=== PATIENT | female | born 1960 | race Caucasian/White ===

== ENCOUNTER 2021-11-09 09:12 | Day surgery (SDC) | payer BC ==
[~2021-11-09] VITALS: Ht 167.6 cm; Wt 74.4 kg
[2021-11-09] VITALS (10 sets, daily range): BP systolic 126–173; BP diastolic 83–111; PULSE 67–94; TEMP 98.5
[2021-11-09] MEDS ORDERED: XARELTO20 MG PO (09:36)
[2021-11-09] MEDS ORDERED: TAMBOCOR 1100 MG/TAB PO (09:37)
[2021-11-09] MEDS ORDERED: TOPROL XL 25MG25 MG PO (09:37)
[2021-11-09 10:32] LABS: HEMATOCRIT 41.7 % (37.0-47.0); HEMOGLOBIN 14.5 g/dl (12.5-16.0); MEAN CELL VOLUME 103 fl (80.0-100.0); MEAN CORPUSCULAR HEMOGLOBIN 36 pg (27-31); MEAN CORPUSCULAR HGB CONC 35 g/dl (33.0-37.0); MEAN PLATELET VOLUME 10.1 fl (7.4-10.4); PLATELET COUNT 243 K/mm3 (130-400); RED BLOOD COUNT 4.04 M/mm3 (4.10-5.30); REDCELL DISTRIBUTION WIDTH-CV 13.9 % (11.5-14.5)
[2021-11-09 10:43] LABS: CALCIUM 9.3 mg/dL (8.4-10.2); CREATININE, serum 0.86 mg/dL (0.57-1.11); INR 1.1 (0.8-3.0); POTASSIUM 4.5 mmol/L (3.5-4.5); PROTHROMBIN TIME 12.6 SECONDS (9.7-12.8)
[2021-11-09 10:46] LABS: PARTIAL THROMBOPLASTIN TIME 29.9 SECONDS (26.0-37.0)
--- NOTE | 2021-11-09 11:23 | NUR ---
SEE MERGE DOCUMENTATION FOR MEDICATION ADMINISTRATION AND INTRA/POST PROCEDURE SEDATION ASSESSMENTS.
[2021-11-09 11:46] LABS: ARTERIAL BLD GAS O2 SATURATION 76.9 % (92-100); ARTERIAL BLD GAS TCO2 CT 25.1; ARTERIAL BLOOD GAS BASE EXCESS -1.4 (-2-2); ARTERIAL BLOOD GAS HCO3 23.8 meq/L (22-26); ARTERIAL BLOOD GAS PCO2 42.1 mmHg (35-45); ARTERIAL BLOOD GAS pH 7.37 (7.35-7.45)
[2021-11-09 11:46] LABS: ARTERIAL BLD GAS O2 SATURATION 78.8 % (92-100); ARTERIAL BLD GAS TCO2 CT 21.2; ARTERIAL BLOOD GAS BASE EXCESS -3.8 (-2-2); ARTERIAL BLOOD GAS HCO3 20.2 meq/L (22-26); ARTERIAL BLOOD GAS PCO2 33.7 mmHg (35-45)
[2021-11-09 11:47] LABS: ARTERIAL BLOOD GAS PO2 44.5 mmHg (80-100)
[2021-11-09 11:47] LABS: ARTERIAL BLOOD GAS PO2 43.3 mmHg (80-100)
--- NOTE | 2021-11-09 12:50 | NUR ---
Pt is back to [facility] after [facility]. Pt resting comfortably on stretcher. report from Caridad SANON. Pt continues to sat 85-86% on room, sats increase gradually with deep breathing. Pt placed on o2 at 21/2 liters, sats 93% with resp rate 10-15/min. Pt is alert and oriented. TR band in place to rt wrist. cms intact distal. Venous puncture to rt femoral vein in rt groin dressed with clean dry and intact gauze/tegaderm dressing. cms also intact distal. Pt aware of poc, including chest xray at approx 1450 after bedrest. We have discussed discharge instructions including activity restrictions and will do so repeatedly throughout pt's stay.
--- NOTE | 2021-11-09 15:39 | NUR ---
Pt has done well during her recovery. She is ambulatory in room with steady gait. Pt has been weaned off oxygen and is satting low 90's on room air, respirations eupnic. TR band has been deflated with no problem. rt radial site dressed with bandaid, folded 2x2 and coban dressing. Rt groin site remains softe, dressing is clean dry and intact. cms intact to extremities. I have reviewed dc instructions r/t cardiac cath and moderate sedation. chest xray has been obtained, and I notified Анна SANON of pt's status.
--- NOTE | 2021-11-09 16:30 | NUR ---
Pt was just escorted to exit via wheelchair. Dr. Cade did make it back in to see pt before she was discharged. Pt satting 96% on room air at time of departure. I reviewed pt's fu and rx instructions with pt who verbalized understanding. No concerns at time of departure.
== END 2021-11-09 16:32 | disposition home or self-care (01) ==
LOC: COL.CAR 09:12
PROVIDERS: Internal Medicine Cardiovascular Disease
DX: I44.7 Left bundle-branch block, unspecified (principal); I48.0 Paroxysmal atrial fibrillation; Z79.01 Long term (current) use of anticoagulants
CPT/HCPCS: C1769; C1894; J1644; J2250; J3010; Q9967

== ENCOUNTER 2021-11-24 07:55 | Inpatient (IN) | payer BC ==
[~2021-11-24] VITALS: Ht 167.6 cm; Wt 63.0 kg
[~2021-11-24 07:55] MED LIST: TAMBOCOR 1100 MG/TAB PO; TOPROL XL 25MG25 MG PO; XARELTO20 MG PO
[2021-12-18 10:13] VITALS: BP 129/97; PULSE 99; TEMP 98.3
[2021-12-18] MEDS ORDERED: MAGNESIUM PO (10:34)
--- NOTE | 2021-12-18 10:49 | NUR ---
pt placed on tele, admission completed, Butch SANON attempting iv, EKG performed, pt HR irregular, oriented to room, no other needs
[2021-12-18 10:55] VITALS: BP 145/99; PULSE 103
--- NOTE | 2021-12-18 11:00 | NUR ---
JACINTO RN NOTIFIED OF EKG NOT POPULATING TO Why Not Give Back, JACINTO ABLE TO LOOK UP EKG AND REPORT QTC AT 494. SEBASTIÁN MADE AWARE AND REPORTED IT WAS OK TO GIVE. IV STARTED 22G TO LFA.
[2021-12-18 14:48] LABS: HEMATOCRIT 39.8 % (37.0-47.0); HEMOGLOBIN 13.5 g/dl (12.5-16.0); MEAN CELL VOLUME 107 fl (80.0-100.0); MEAN CORPUSCULAR HEMOGLOBIN 36 pg (27-31); MEAN CORPUSCULAR HGB CONC 34 g/dl (33.0-37.0); MEAN PLATELET VOLUME 10.1 fl (7.4-10.4); PLATELET COUNT 159 K/mm3 (130-400); RED BLOOD COUNT 3.72 M/mm3 (4.10-5.30); REDCELL DISTRIBUTION WIDTH-CV 14.4 % (11.5-14.5)
[2021-12-18 15:05] LABS: CALCIUM 8.5 mg/dL (8.4-10.2); CREATININE, serum 0.86 mg/dL (0.57-1.11); POTASSIUM 3.9 mmol/L (3.5-4.5)
[2021-12-18 15:37] VITALS: BP 136/88; PULSE 105; TEMP 97.2
--- NOTE | 2021-12-18 17:13 | NUR ---
UNEVENTFUL SHIFT, PT DENIES PAIN, INDEPENDENT IN ROOM, TELE ON PER ORDER, NO OTHER NEEDS
[2021-12-18 19:28] VITALS: BP 139/95; PULSE 100; TEMP 98.3
--- NOTE | 2021-12-18 21:10 | NUR ---
ALERT AND OX4. DENIES SOA, CHEST PAIN OR DIZZY. EKG SHOWS QTC OF 493, SOLOTOL GIVEN PER ORDER ALONG W PM MEDS. POC DISCUSSED. CALL LIGHT WI REACH.
--- NOTE | 2021-12-18 23:58 | NUR ---
2313- PT CONVERTS FROM AFIB TO NSR. RESTING W EYES CLOSED, RESP EVEN AND UNLABORED.
[2021-12-19 00:13] VITALS: BP 128/86; PULSE 66; TEMP 97.9
[2021-12-19 03:54] VITALS: BP 128/78; PULSE 65; TEMP 97.9
--- NOTE | 2021-12-19 06:02 | NUR ---
RESTED THROUGH THE NIGHT WITHOUT INCIDENT. CALL LIGHT WI REACH.
[2021-12-19 06:20] LABS: BASO % 0.6 % (0.0-2.0); EOS # 0.1 K/mm3 (0.0-0.7); EOS % 1.5 % (0.0-4.0); GRAN # 1.9 K/mm3 (1.4-6.5); GRAN % 55.8 % (42.2-75.2); HEMATOCRIT 38.6 % (37.0-47.0); HEMOGLOBIN 13.2 g/dl (12.5-16.0); LYMPH # 0.9 K/mm3 (1.2-3.4); LYMPH % 26.3 % (20.0-51.0); MEAN CELL VOLUME 106 fl (80.0-100.0); MEAN CORPUSCULAR HEMOGLOBIN 36 pg (27-31); MEAN CORPUSCULAR HGB CONC 34 g/dl (33.0-37.0); MEAN PLATELET VOLUME 10.5 fl (7.4-10.4); MONO # 0.5 K/mm3 (0.1-0.6); MONO % 15.8 % (1.7-9.3); PLATELET COUNT 153 K/mm3 (130-400); RED BLOOD COUNT 3.65 M/mm3 (4.10-5.30); REDCELL DISTRIBUTION WIDTH-CV 14.3 % (11.5-14.5)
[2021-12-19 06:32] LABS: INR 2.2 (0.8-3.0)
[2021-12-19 06:34] LABS: CALCIUM 8.5 mg/dL (8.4-10.2); CREATININE, serum 0.77 mg/dL (0.57-1.11); MAGNESIUM 1.7 mg/dL (1.6-2.6)
--- NOTE | 2021-12-19 07:41 | NUR ---
DR. LOWERY PAGED AFTER EKG REVIEWED. DR. LOWERY RETURNED CALL AND QTC 523, CONVERSION TO SINUS AYO, AND SOTALOL 80MG DOSE REVIEWED. RECIEVED VERBAL ORDER TO CHANGE DOSE TO 40MG BID. NO OTHER NEEDS.
[2021-12-19 08:09] VITALS: BP 142/88; PULSE 63; TEMP 97.8
--- NOTE | 2021-12-19 08:15 | NUR ---
PT AOX4, PLEASANT, LAYING IN BED WATCHING TELEVISION UPON ENTRY, CALL LIGHT WITHIN REACH, ICE WATER PROVIDED, PT DENIES PAIN, ASSESSMENT PERFORMED, MEDICATIONS GIVEN, EDUCATED PT ON SOTALOL DOSE CHANGE AND PT BEING IN NSR ON EKG/TELEMETRY. UPON ASSESSMENT HR SOUNDED IRREGULAR, TELEMETRY CALLED AND REPORTED NSR W/ OCCASIONAL PAC. VITALS REVIEWED. PT REPORTED SHE WOULD BE TRYING TO GO BACK TO SLEEP. NO OTHER NEEDS AT THIS TIME.
--- NOTE | 2021-12-19 09:41 | NUR ---
SW met with the patient to discuss discharge plan. The patient lives alone in [place]. She states that her ex-, Jhony Lombardi (ph#[phone]), stays with her from time to time. She reports independence with ADLs and does not have any DME. The patient's PCP is Dr. Vale Jose and she receives her medications from [facility]. She reports no difficulties obtaining her meds. The patient does not have a DPOA-HC in EMR, but she states that she does have one completed and that she designated her ex-, Jhony. She states [facility] may have a copy of the document. The patient plans on returning home upon discharge. No additional needs at this time. *Discharge plan: home*
--- NOTE | 2021-12-19 10:50 | NUR ---
First visit from the gutter mouth cutter. No needs right now.
[2021-12-19 12:44] VITALS: BP 153/83; PULSE 57; TEMP 98.4
[2021-12-19 15:53] VITALS: BP 152/76; PULSE 58; TEMP 98.1
--- NOTE | 2021-12-19 17:30 | NUR ---
PT AOX4, DENIES PAIN DURING SHIFT, EDUCATED ON PURPOSE OF IV MAGNESIUM AND XARELTO. UNEVENTFUL SHIFT, INDEPENDENT IN ROOM, CALL LIGHT WITHIN REACH, EAGER FOR DISCHARGE IN AM, NO OTHER NEEDS
[2021-12-19 20:19] VITALS: BP 147/85; PULSE 66; TEMP 97.8
[2021-12-20 00:39] VITALS: BP 153/88; PULSE 56; TEMP 97.6
--- NOTE | 2021-12-20 02:14 | NUR ---
PT CONT TO BE ON SOTOLOL 1/2 DOSE ADJUSTED TODAY. DENIES ANY CHEST PAIN, LIGHT HEADED OR DIZZY. HEART RYTHM NSR. POSSIBLE DC TODAY IF ALL CONTINUES TO GO WELL. CALL LIGHT WI REACH. NEEDS MET.
[2021-12-20 08:06] VITALS: BP 131/89; PULSE 54; TEMP 97.8
--- NOTE | 2021-12-20 09:04 | NUR ---
Pt assessment complete. Pt is laying in bed upon entry, she is A/O x4. Her breathing is even and unlabored on RA. Pt denies SOB. No pain at this time. Denies any palpitations or dizziness. POC discussed with patient who verbalizes understanding. No needs at this time.
[2021-12-20 11:39] VITALS: BP 159/96; PULSE 56; TEMP 98.1
--- NOTE | 2021-12-20 13:30 | NUR ---
Discharge instructions and paperwork reviewed with patient, all questions answered at this time. IV to LFA dc'd catheter tip intact. Pt walked out of facility at this time.
--- NOTE | 2021-12-20 17:33 | NUR ---
Pt called with concerns of discharge medication instructions. Spoke with Dr. Cade who states his nurse at the office is clarifying and will contact the patient on correct instructions.
== END 2021-12-20 13:30 | disposition home or self-care (01) | DRG 310 ==
LOC: MEDICAL 12-18 07:54 → INPTSU 12-18 08:46 → MEDICAL 12-18 09:19
PROVIDERS: ADMIT Internal Medicine Cardiovascular Disease
DX: I48.91 Unspecified atrial fibrillation (principal); I10 Essential (primary) hypertension
CPT/HCPCS: J3475